=== PATIENT | female | born 1940 | race Caucasian/White ===

== ENCOUNTER 2016-08-07 12:15 | Emergency (ER) | payer SELFPAY ==
[~2016-08-07] VITALS: Ht 154.9 cm; Wt 72.1 kg
[2016-08-07 12:57] VITALS: BP 151/62
--- NOTE | 2016-08-07 17:55 | NUR ---
PATIENT LEFT WITHOUT BEING SEEN BY DR. VILLA. NO FURTHER CARE PROVIDED FOR PATIENT.
== END 2016-08-07 17:55 | disposition left against medical advice (07) ==
LOC: MED 12:15
DX: M79.672 Pain in left foot (principal); Z53.21 Procedure and treatment not carried out due to patient leaving prior to being seen by health care provider
CPT/HCPCS: 73630; 99281; 99284